=== PATIENT | female | born 1945 | race Caucasian/White ===

== ENCOUNTER 2016-12-27 14:01 | Outpatient (CLI) | payer MEDICARE ==
--- NOTE | 2016-12-27 15:54 | MMO ---
BILATERAL SCREENING MAMMOGRAM: Date: 12/27/16 COMPARISON: 10/13/15, 09/21/14. HISTORY: Screening mammography. FINDINGS: This patient's mammogram was interpreted with the assistance of computer-aided detection. Scattered fibroglandular densities are present. Benign calcification noted bilaterally. No dominant mass or architectural distortion. No concerning m icrocalcifications are seen. IMPRESSION: BIRADS 2: Benign Finding(s) Annual screening mammography recommended. POS: [facility]
== END 2016-12-27 14:02 | disposition home or self-care (01) ==
LOC: SCSMAMMO 14:01
PROVIDERS: ATTEND Family Medicine
DX: Z12.31 Encounter for screening mammogram for malignant neoplasm of breast (principal)
CPT/HCPCS: 77067; G0202

== ENCOUNTER 2018-01-14 14:37 | Outpatient (CLI) | payer MEDICARE ==
--- NOTE | 2018-01-14 16:05 | MMO ---
ANNUAL DIGITAL SCREENING MAMMOGRAPHY: HISTORY: Patient is a 72-year-old who presents for annual screening mammography. COMPARISON: Comparison is made to a previous exam from 12/27/2016. FINDINGS: The patient's mammograms were also evaluated using computer-aided detection. Images demonstrate benign-appearing bilateral breast calcifications. No definite evidence of suspici ous masses or lesions seen. IMPRESSION: BIRADS category 2 - benign findings. BIRADS 2: Benign Finding(s) Routine annual screening mammography (for women over age 40) POS: [facility]YAN
== END 2018-01-14 14:38 | disposition home or self-care (01) ==
LOC: SCSMAMMO 14:37
PROVIDERS: ATTEND Nurse Practitioner Family
DX: Z12.31 Encounter for screening mammogram for malignant neoplasm of breast (principal); Z80.3 Family history of malignant neoplasm of breast; Z85.3 Personal history of malignant neoplasm of breast
CPT/HCPCS: 77067

== ENCOUNTER 2019-12-18 15:40 | Outpatient (CLI) | payer MEDICARE ==
--- NOTE | 2019-12-18 16:07 | MMO ---
Bilateral MAMMO Bilat Screen [facility]. CLINICAL HISTORY: Patient is 74 years old and is seen for screening. The patient has the following family history of breast cancer: sister, malignant (generic). The patient has no personal history of cancer. The patient has a history of left Cyst Aspiration in YEARS AGO. VIEWS: The views performed were: bilateral craniocaudal with tomosynthesis and bilateral mediolateral oblique with tomosynthesis. FILMS COMPARED: The present examination has been compared to prior imaging studies performed at [facility] on 12/27/2016 and 01/14/2018, and at [facility] on 09/21/2014 and 10/13/2015. This study has been interpreted with the assistance of computer-aided detection. MAMMOGRAM FINDINGS: There are scattered fibroglandular densities. There are stable benign appearing calcifications seen in both breasts. Nodularity is stable. There are no suspicious masses, suspicious calcifications, or new areas of architectural distortion. IMPRESSION: THERE IS NO MAMMOGRAPHIC EVIDENCE OF MALIGNANCY. A ROUTINE FOLLOW-UP MAMMOGRAM IN 1 YEAR IS RECOMMENDED. THE RESULTS OF THIS EXAM WERE SENT TO THE PATIENT. ACR BI-RADS Category 2 - Benign finding MAMMOGRAPHY NOTE: 1. A negative mammogram report should not delay a biopsy if a dominant of clinically suspicious mass is present. 2. Approximately 10% to 15% of breast cancers are not detected by mammography. 3. Adenosis and dense breasts may obscure an underlying neoplasm. Reported by: INEZ PETERSON MD Electonically Signed: [id number]
== END 2019-12-18 15:41 | disposition home or self-care (01) ==
LOC: BICMAMMO 15:40
PROVIDERS: ATTEND Nurse Practitioner Family
DX: Z12.31 Encounter for screening mammogram for malignant neoplasm of breast (principal); Z80.3 Family history of malignant neoplasm of breast
CPT/HCPCS: 77063; 77067

== ENCOUNTER 2020-12-21 09:46 | Outpatient (CLI) | payer MEDICARE | END 2020-12-21 09:47 | disposition home or self-care (01) | LOC: BICMAMMO 09:46 | PROVIDERS: ATTEND Nurse Practitioner Family | DX: Z12.31 Encounter for screening mammogram for malignant neoplasm of breast (principal); Z80.3 Family history of malignant neoplasm of breast | CPT/HCPCS: 77063; 77067 ==

== ENCOUNTER 2021-12-25 10:33 | Outpatient (CLI) | payer MEDICARE | END 2021-12-25 10:34 | disposition home or self-care (01) | LOC: BICMAMMO 10:33 | PROVIDERS: ATTEND Family Medicine | DX: Z12.31 Encounter for screening mammogram for malignant neoplasm of breast (principal); Z98.890 Other specified postprocedural states; Z80.3 Family history of malignant neoplasm of breast | CPT/HCPCS: 77063; 77067 ==

== ENCOUNTER 2022-12-25 15:52 | Outpatient (CLI) | payer MEDICARE | END 2022-12-25 15:53 | disposition home or self-care (01) | LOC: ULT 15:52 | DX: R10.11 Right upper quadrant pain (principal); R18.8 Other ascites; K82.4 Cholesterolosis of gallbladder; K86.9 Disease of pancreas, unspecified | CPT/HCPCS: 76705 ==

== ENCOUNTER 2022-12-26 14:06 | Emergency (ER) | payer MEDICARE ==
[~2022-12-26 14:06] MED LIST: Iopamidol-370 76% 500 ML MDV (1 ML CHARGE) ONE
[2022-12-26 15:18] LABS: Hematocrit 36.5 % (36.0-47.0); Hemoglobin 11.8 g/dL (12.0-16.0); Mean Corpuscular HGB CONC 32.3 g/dL (32.0-36.0); Mean Corpuscular Hemoglobin 29.7 pg (27.0-31.0); Mean Corpuscular Volume 91.9 fl (78.0-98.0); Mean Platelet Volume 12.7 fL (7.4-10.4); Platelet Count 148 10x3/uL (130-400); RBC Distribution Width 12.7 % (11.5-14.5); Red Blood Cell (RBC) Count 3.97 mill/uL (4.20-5.40); White Blood Cell (WBC) Count 13.2 10x3/uL (4.8-10.8)
[2022-12-26 15:19] LABS: Delete Auto Diff?? YES; Manual Diff?? YES
[2022-12-26 15:41] LABS: ALT (SGPT) 13 U/L (8-55); AST (SGOT) 25 U/L (5-34); Albumin 3.8 g/dL (3.4-4.8); Alkaline Phosphatase 328 U/L (40-110); Anion Gap 18 mmol/L (10-20); BUN (Urea Nitrogen) 13 mg/dL (9.8-20.1); Calc. Creatinine Clearance 0 mL/min (70-130); Calcium 8.8 mg/dL (7.8-10.44); Carbon Dioxide 24 mmol/L (23-31); Chloride 100 mmol/L (98-107); Estimated GFR 80; Globulin 2.5 g/dL (2.4-3.5); Glucose 102 mg/dL (83-110); Lipase Less than 4 U/L (8-78); Potassium 4.6 mmol/L (3.5-5.1); Protein, Total 6.3 g/dL (5.8-8.1); Sodium 137 mmol/L (136-145)
[2022-12-26 15:44] LABS: Band 12 % (5-11); Burr Cells SLIGHT = 2-5 cells HPF (0-1); CellaVision Operator ID LAB.MJL; Eosinophils 4 % (0-10); Large Platelets 12.6 % (0-5); Lymphocytes 7 % (21-51); Monocytes 14 % (0-10); Neutrophil 60 % (42-75); Ovalocytes SLIGHT = 2-5 cells HPF (0-1); Platelet Adequacy Comment Platelets Normal; Polychromasia SLIGHT = 2-3 cells HPF (0-2); Reactive Lymphocytes 3 % (0-10); Total Cell Count 103
[2022-12-26] MEDS ORDERED: Ondansetron PF 4 MG/2 ML Vial ONE (18:10)
[2022-12-26] MEDS ORDERED: Morphine 4 MG/ML VIAL ONE (18:10)
[2022-12-26 23:50] LABS: INR-International Normal Ratio 1.2; PTT 30.4 sec (22.9-36.1); Prothrombin Time 15.4 sec (12.0-14.7)
== END 2022-12-27 01:17 | disposition short-term general hospital (02) ==
LOC: ERS 14:06
DX: R16.0 Hepatomegaly, not elsewhere classified (principal); K86.9 Disease of pancreas, unspecified; I10 Essential (primary) hypertension; Z79.899 Other long term (current) drug therapy
CPT/HCPCS: 36415; 74177; 80053; 83605; 83690; 85025; 85610; 85730; 87040; 96374; 96375; J2270; J2405; Q9967

== ENCOUNTER 2023-01-01 14:07 | Emergency (ER) | payer MEDICARE ==
[2023-01-01 14:32] LABS: Hematocrit 39.5 % (36.0-47.0); Hemoglobin 12.9 g/dL (12.0-16.0); Mean Corpuscular HGB CONC 32.7 g/dL (32.0-36.0); Mean Corpuscular Hemoglobin 29.3 pg (27.0-31.0); Mean Corpuscular Volume 89.6 fl (78.0-98.0); Mean Platelet Volume 13.1 fL (7.4-10.4); Red Blood Cell (RBC) Count 4.41 mill/uL (4.20-5.40); White Blood Cell (WBC) Count 19.7 10x3/uL (4.8-10.8)
[2023-01-01 14:45] LABS: INR-International Normal Ratio 1.3; PTT 31.2 sec (22.9-36.1); Prothrombin Time 16.8 sec (12.0-14.7)
[2023-01-01 14:49] LABS: Delete Auto Diff?? YES; Manual Diff?? YES; Platelet Count 84 10x3/uL (130-400)
[2023-01-01 14:52] LABS: ALT (SGPT) 7 U/L (8-55); AST (SGOT) 22 U/L (5-34); Albumin 3.4 g/dL (3.4-4.8); Alkaline Phosphatase 268 U/L (40-110); Anion Gap 15 mmol/L (10-20); BUN (Urea Nitrogen) 19 mg/dL (9.8-20.1); Bilirubin, Total 1.3 mg/dL (0.2-1.2); Calc. Creatinine Clearance 0 mL/min (70-130); Calcium 8.6 mg/dL (7.8-10.44); Carbon Dioxide 23 mmol/L (23-31); Chloride 99 mmol/L (98-107); Estimated GFR 75; Globulin 2.7 g/dL (2.4-3.5); Glucose 121 mg/dL (83-110); Potassium 4.8 mmol/L (3.5-5.1); Protein, Total 6.1 g/dL (5.8-8.1); Sodium 132 mmol/L (136-145)
[2023-01-01 14:56] LABS: Troponin I 0.147 ng/mL (< 0.028)
[2023-01-01 15:04] LABS: Band 18 % (5-11); CellaVision Operator ID LAB.KB; Large Platelets 10.8 % (0-5); Lymphocytes 1 % (21-51); Monocytes 7 % (0-10); Neutrophil 75 % (42-75); Platelet Adequacy Comment Platelets Decreased; Polychromasia SLIGHT = 2-3 cells HPF (0-2); Smudge Cells 4.9 %; Total Cell Count 102
[2023-01-01] MEDS ORDERED: Cefepime 2 GM VIAL ONE (15:29)
[2023-01-01] MEDS ORDERED: Vancomycin 1 GM/200 ML (FROZEN) BAG ONE (15:29)
[2023-01-01] MEDS ORDERED: Sodium Chloride 0.9% 100 ML ONE (15:29)
== END 2023-01-01 16:03 | disposition short-term general hospital (02) ==
LOC: ERS 14:07
DX: I66.01 Occlusion and stenosis of right middle cerebral artery (principal); I63.9 Cerebral infarction, unspecified; I10 Essential (primary) hypertension; Z79.899 Other long term (current) drug therapy
CPT/HCPCS: 70450; 70496; 70498; 71045; 80053; 84484; 85025; 85610; 85730; 93005; 94760; J3370; 96374; 96375; J0692; J3490